=== PATIENT | female | born 1950 | race Caucasian/White ===

== ENCOUNTER 2017-02-14 17:37 | Observation (INO) | payer OTHER ==
--- NOTE | 2017-02-14 18:09 | ED PDOC ---
Arrival/HPI - General Chief Complaint: Dizziness/Lightheaded Time Seen by Provider: 02/14/17 18:02 Historian: Patient, [place] (who arrived with patient from work) - History of Present Illness Narrative History of Present Illness (Text): 02/14/17 18:03 A 66 year old female was brought into the emergency department by EMS complaining of dizziness that began 1 hour ago. History obtained through pharmacy ancillary who accompanied patient from work. Patient reports a headache, nausea and one episode of non-bilious non-bloody vomiting prior to arrival. Patient denies any fever, diarrhea, abdominal pain, chest pain, shortness of breath or any other complaints. HPI and ROS limited due to language barrier. PMD: None Time/Duration: 1 hour Symptom Course: Unchanged Quality: Other Context: Work Past Medical History - Provider Review Nursing Documentation Reviewed: Yes - Infectious Disease Hx of Infectious Diseases: None - Reproductive Menopause: Yes - Cardiac Hx Hypertension: Yes - Pulmonary Hx Respiratory Disorders: No - Psychiatric Hx Substance Use: No - Anesthesia Hx Anesthesia: No Family/Social History - Physician Review Nursing Documentation Reviewed: Yes Family/Social History: No Known Family HX Smoking Status: Unknown If Ever Smoked Hx Alcohol Use: No Hx Substance Use: No Allergies/Home Meds Allergies/Adverse Reactions: Allergies No Known Allergies Allergy (Verified 02/14/17 17:54) Home Medications: Home Meds Medication Instructions Recorded Confirmed Unobtainable 02/14/17 02/14/17 Review of Systems - Review of Systems Systems not reviewed;Unavailable: Language Barrier Physical Exam - Physical Exam Narrative Physical Exam (Text): Head: Atraumatic. Normocephalic. Eyes: PERRL. EOMI. Conjunctivae are not pale. ENT: Mucous membranes are moist and intact. Oropharynx is clear and symmetric. Neck: Supple. Full ROM. No JVD. No lymphadenopathy. Cardiovascular: Regular rate. Regular rhythm. No murmurs, rubs, or gallops. Distal pulses are 2+ and symmetric. Pulmonary/Chest: No evidence of respiratory distress. Clear to auscultation bilaterally. No wheezing, rales or rhonchi. Abdominal: Soft and non-distended. There is no tenderness. No rebound, guarding, or rigidity. No organomegaly. Good bowel sounds. Back: No CVA tenderness. Extremities: No edema. No cyanosis. No clubbing. Full range of motion in all extremities. No calf tenderness. Skin: Skin is warm and dry. No petechiae. No purpura. Neurological: Alert, awake, and oriented to person, place, time, and situation. Normal speech. Psychiatric: Good eye contact. Normal interaction, affect, and behavior. Vital Signs Reviewed: Yes Vital Signs Temp Pulse Resp BP Pulse Ox 02/14/17 20:48 98 F 68 20 103/80 99 02/14/17 19:14 98 F 71 20 142/99 H 100 02/14/17 17:45 97.6 F 60 20 144/96 H 100 Temperature: Afebrile Blood Pressure: Hypertensive Pulse: Regular Respiratory Rate: Normal Appearance: Positive for: Well-Appearing, Non-Toxic, Comfortable Pain Distress: None Mental Status: Positive for: Alert and Oriented X 3 Medical Decision Making ED Course and Treatment: 02/14/17 18:03 Impression: A 66 year old female with dizziness. Differential Diagnosis included but are not limited to: Vertigo vs. Gastroenteritis Plan: -- Head CT -- Chest xray -- EKG -- Labs -- Urinalysis -- Antivert and IV fluids -- Reassess and disposition Progress Notes: Patient reassessed with pharmacy ancillary phone, [place] [id number], [place] [id number] specifically audio pharmacy ancillary. Patient states to me that she works at [employer], does not currently have a PMD. States that she was feeling well this AM when she woke up, while at work she suddenly developed dizziness, sensation that she may fall, associated with nausea and several episodes of vomiting. Patient states that vomiting is preciptated by dizziness. Patient denies chest pain or shortness of breath. Denies visual symptoms. Denies neck pain. Denies trauma. Denies numbness or weakness. On exam, patient is severely symptomatic with any movements. No hypotension or tachycardia noted. No caroitd bruits. No focal weakness or slurred speech or facial droop noted. No trauma reported. CT ordered due to acute onset of symptoms: Report Date : 02/14/2017 18:48:31 PROCEDURE: CT HEAD WITHOUT CONTRAST. Dictator : FAVIOLA GARCIA MD IMPRESSION: No acute intracranial abnormality. Mild age-related global parenchymal volume loss. Report Date : 02/14/2017 18:54:11 Procedure: Chest xray Dictator : Ladonna Ralph MD IMPRESSION: No focal consolidation, significant pleural effusion, or definite pneumothorax identified. On re-exam, improved but persistent symptoms since initial arrival. Patient will be admitted for observation as well as social service consultation as she reports no family, no ride home, and lives in [place]. D/w Dr. Garcia, accepts admission to hospitalist. 02/14/17 22:29 - Lab Interpretations Lab Results: 02/14/17 18:18 02/14/17 18:18 Lab Results 02/14/17 18:18: WBC 8.3, RBC 4.27, Hgb 12.3, Hct 37.0, MCV 86.7, MCH 28.8, MCHC 33.2, RDW 14.0, Plt Count 242, MPV 10.2, Gran % 79.9 H, Lymph % (Auto) 15.3 L, [place] % (Auto) 4.1, Eos % (Auto) 0.6 L, Baso % (Auto) 0.1, Gran # 6.65 H, Lymph # 1.3, [place] # 0.3, Eos # 0.1, Baso # 0.01, PT 11.8, INR 1.09 H, APTT 22.4 L, Sodium 138, Potassium 3.8, Chloride 103, Carbon Dioxide 24, Anion Gap 15, BUN 20 , Creatinine 0.9, Est GFR ( Amer) > 60, Est GFR (Non-Af Amer) > 60, Random Glucose 167 H, Calcium 9.1, Total Bilirubin 0.4, AST 43 H, ALT 29, Alkaline Phosphatase 86, Lactate Dehydrogenase 518, Total Creatine Kinase 233 H , CK-MB (CK-2) 1.0, CK-MB (CK-2) % Cancelled, Troponin I < 0.01, Total Protein 7.7, Albumin 4.2, Globulin 3.5, Albumin/Globulin Ratio 1.2 - RAD Interpretation Radiology Orders: 02/14/17 18:03 HEAD W/O CONTRAST [CT] Stat CHEST ONE VIEW [RAD] Stat - EKG Interpretation EKG Interpretation (Text): 02/14/17 22:34 sinus bradycardia rate of 50 Interpreted by ED Physician: Yes Type: 12 lead EKG - Medication Orders Current Medication Orders: Sodium Chloride (Sodium Chloride 0.9%) 1,000 mls @ 100 mls/hr IV .Q10H VERITO Last Admin: 02/14/17 18:23 Dose: 100 MLS/HR eMAR Start Stop Document 02/14/17 18:23 BREEZY (Rec: 02/14/17 18:23 [id number] Intravenous Solution Start Date 02/14/17 Start Time 18:23 Discontinued Medications Meclizine HCl (Antivert) 25 mg PO ONCE ONE Stop: 02/14/17 18:05 Last Admin: 02/14/17 18:23 Dose: 25 MG Ondansetron HCl (Zofran Inj) 4 mg IVP ONCE ONE Stop: 02/14/17 19:40 Last Admin: 02/14/17 19:56 Dose: 4 MG IVP Administration Document 02/14/17 19:56 RJR (Rec: 02/14/17 19:56 RJR [id number]) Charges for Administration # of IVP Administrations 1 - Scribe Statement The provider has reviewed the documentation as recorded by the Scribyakov Hernandez Provider Scribe Attestation: All medical record entries made by the Scribe were at my direction and personally dictated by me. I have reviewed the chart and agree that the record accurately reflects my personal performance of the history, physical exam, medical decision making, and the department course for this patient. I have also personally directed, reviewed, and agree with the discharge instructions and disposition. Disposition/Present on Arrival - Present on Arrival Any Indicators Present on Arrival: No History of DVT/PE: No History of Uncontrolled Diabetes: No Urinary Catheter: No History of Decub. Ulcer: No History Surgical Site Infection Following: None - Disposition Have Diagnosis and Disposition been Completed?: Yes Diagnosis: Vertigo, Dizziness Disposition: HOSPITALIZED Disposition Time: 22:35 Patient Plan: Observation Patient Problems: Current Active Problems Problem Status Diagnosed Dizziness Acute Vertigo Acute Condition: FAIR
[2017-02-14] MEDS ORDERED: Sodium Chloride 0.9% 1,000 ML IV SCH (18:15)
[2017-02-14 18:26] LABS: ADD MANUAL DIFF? NO
[2017-02-14 18:29] LABS: BASO # 0.01 [, K/mm3] (0.0-2.0); BASO % 0.1 % (0.0-3.0); EOS # 0.1 (0.0-0.7); EOS % 0.6 % (1.5-5.0); GRAN # 6.65 (1.4-6.5); GRAN % 79.9 % (50.0-68.0); LYMPH # 1.3 (1.2-3.4); LYMPH % 15.3 % (22.0-35.0); MEAN CELL VOLUME 86.7 fL (80.0-105.0); MEAN CORPUSCULAR HEMOGLOBIN 28.8 pg (25.0-35.0); MEAN CORPUSCULAR HGB CONC 33.2 g/dl (31.0-37.0); MEAN PLATELET VOLUME 10.2 fl (7.0-11.0); MONO # 0.3 (0.1-0.6); MONO % 4.1 % (1.0-6.0); PLATELET COUNT 242 [, 10^3/uL] (120.0-450.0); WHITE BLOOD COUNT 8.3 [, 10^3/ul] (4.5-11.0)
--- NOTE | 2017-02-14 18:49 | CT ---
PROCEDURE: CT HEAD WITHOUT CONTRAST. HISTORY: Sudden onset of dizziness COMPARISON: None available. TECHNIQUE: Axial computed tomography images were obtained through the head/brain without intravenous contrast. Radiation dose: Total exam DLP = 774.23 mGy-cm. FINDINGS: HEMORRHAGE: No intracranial hemorrhage. BRAIN: [place]-white matter differentiation is preserved. There is no mass, mass effect or abnormal extra-axial fluid collection. There is normal density in the larger dural venous sinuses. VENTRICLES: There is mild age-related global parenchymal volume loss and proportionate enlargement of the ventricles and cortical sulci CALVARIUM: The skull base and calvarium are normal. PARANASAL SINUSES: Predominantly clear. MASTOID AIR CELLS: Predominantly clear. OTHER FINDINGS: None. IMPRESSION: No acute intracranial abnormality. Mild age-related global parenchymal volume loss.
[2017-02-14 18:54] LABS: ALB/GLOB RATIO 1.2 (1.1-1.8); ALKALINE PHOSPHATASE 86 U/L (38-133); ALT/SGPT 29 U/L (7-56); AST/SGOT 43 U/L (15-39); BILIRUBIN,TOTAL 0.4 mg/dL (0.2-1.3); BLOOD UREA NITROGEN 20 mg/dL (7-21); CALCIUM 9.1 mg/dL (8.4-10.5); CARBON DIOXIDE 24 mmol/L (21-33); CHLORIDE 103 mmol/L (98-107); GFR AFRICAN-AMERICAN > 60; GLUCOSE,RANDOM 167 mg/dL (70-110); POTASSIUM 3.8 mmol/L (3.6-5.0); SODIUM 138 mmol/L (132-148); TOTAL PROTEIN 7.7 g/dL (5.8-8.3)
--- NOTE | 2017-02-14 18:55 | RAD ---
HISTORY: dizziness COMPARISON: None available TECHNIQUE: Chest, one view. FINDINGS: Examination limited by habitus. LUNGS: No focal consolidation. Please note that chest x-ray has limited sensitivity for the detection of pulmonary masses. PLEURA: No significant pleural effusion identified. No definite pneumothorax . CARDIOVASCULAR: The cardiomediastinal silhouette appears within normal limits of size. OSSEOUS STRUCTURES: No acute osseous abnormality identified. VISUALIZED UPPER ABDOMEN: Unremarkable. OTHER FINDINGS: None. IMPRESSION: No focal consolidation, significant pleural effusion, or definite pneumothorax identified.
[2017-02-14 18:59] LABS: INR 1.09 (0.93-1.08); PARTIAL THROMBOPLASTIN TIME 22.4 Seconds (23.7-30.8)
[2017-02-14 19:09] LABS: TROPONIN I < 0.01 ng/mL
--- NOTE | 2017-02-14 22:22 | CP.PCM.HP ---
<Letty Lemons - Last Filed: 02/15/17 01:17> History of Present Illness - History of Present Illness History of Present Illness: PGY-[address] Tarango H&P Admission: Dizzines, N/V 66 year old female was brought into the emergency department by EMS complaining of dizziness that began 1 hour ago. 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 Patient reports suddenly feeling dizzy, sitting at work. Thereafter felt nausea and one episode of non-bilious non-bloody vomiting prior to arrival. In the ED, VSS: 98 F; H 71, 142/99, 100 RA. In 2 hours, BP drops to 103/80. CBC normal. BMP normal. AST slight elevated at 43. CK at 233. First cardiac enzyme negative Head CT showed: No acute intracranial abnormality. Mild age-related global parenchymal volume loss. CXR shows: No focal consolidation, significant pleural effusion, or definite pneumothorax identified. ROS - Patient denies any fever, diarrhea, abdominal pain, chest pain, shortness of breath or any other complaints. PMH HTN PSH Fibroid removal 40 years ago FH Pt states not sure SH Lives alone Never smoke, drink, drug All None Med 3 HTN meds but forgot what they are, forgot which pharmacy, forgot the name of PMD Present on Admission - Present on Admission Any Indicators Present on Admission: No Past Patient History - Infectious Disease Hx of Infectious Diseases: None - Past Social History Smoking Status: Unknown If Ever Smoked - CARDIAC Hx Hypertension: Yes - PULMONARY Hx Respiratory Disorders: No - PSYCHIATRIC Hx Substance Use: No - ANESTHESIA Hx Anesthesia: No Meds Allergies/Adverse Reactions: Allergies Allergy/AdvReac Type Severity Reaction Status Date / Time No Known Allergies Allergy Verified 02/14/17 17:54 Physical Exam - Constitutional Appears: No Acute Distress - Head Exam Head Exam: ATRAUMATIC, NORMOCEPHALIC - Eye Exam Eye Exam: EOMI, Normal appearance - ENT Exam ENT Exam: Mucous Membranes Moist - Neck Exam Neck exam: Negative for: Meningismus Additional comments: supple - Respiratory Exam Respiratory Exam: Clear to Auscultation Bilateral, NORMAL BREATHING PATTERN. absent: Rales, Rhonchi, Wheezes - Cardiovascular Exam Cardiovascular Exam: REGULAR RHYTHM, +S1, +S2, Systolic Murmur (1+) - GI/Abdominal Exam GI & Abdominal Exam: Normal Bowel Sounds, Soft. absent: Tenderness - Extremities Exam Extremities exam: Positive for: normal capillary refill, pedal pulses present. Negative for: calf tenderness, pedal edema - Back Exam Back exam: absent: CVA tenderness (L), CVA tenderness (R) - Neurological Exam Neurological exam: Alert, CN II-XII Intact, Oriented x3, Reflexes Normal Additional comments: Negative [place] - Psychiatric Exam Psychiatric exam: Normal Affect, Normal Mood - Skin Skin Exam: Dry, Warm Additional comments: a 1/4 inch x 1/4 inch brown mole, regular border on L medial breast Results - Vital Signs Recent Vital Signs: Last Vital Signs Temp 98 F 02/14/17 20:48 Pulse 68 02/14/17 20:48 Resp 20 02/14/17 20:48 BP 103/80 02/14/17 20:48 Pulse Ox 99 02/14/17 20:48 - Labs Result Diagrams: 02/14/17 18:18 02/14/17 18:18 Labs: Laboratory Results - last 24 hr 02/14/17 18:18 WBC 8.3 RBC 4.27 Hgb 12.3 Hct 37.0 MCV 86.7 MCH 28.8 MCHC 33.2 RDW 14.0 Plt Count 242 MPV 10.2 Gran % 79.9 H Lymph % (Auto) 15.3 L [place] % (Auto) 4.1 Eos % (Auto) 0.6 L Baso % (Auto) 0.1 Gran # 6.65 H Lymph # 1.3 [place] # 0.3 Eos # 0.1 Baso # 0.01 PT 11.8 INR 1.09 H APTT 22.4 L Sodium 138 Potassium 3.8 Chloride 103 Carbon Dioxide 24 Anion Gap 15 BUN 20 Creatinine 0.9 Est GFR ( Amer) > 60 Est GFR (Non-Af Amer) > 60 Random Glucose 167 H Calcium 9.1 Total Bilirubin 0.4 AST 43 H ALT 29 Alkaline Phosphatase 86 Lactate Dehydrogenase 518 Total Creatine Kinase 233 H CK-MB (CK-2) 1.0 CK-MB (CK-2) % Cancelled Troponin I < 0.01 Total Protein 7.7 Albumin 4.2 Globulin 3.5 Albumin/Globulin Ratio 1.2 Assessment & Plan - Assessment and Plan (Free Text) Plan: 66 year old female was brought into the emergency department by EMS complaining of dizziness that began 1 hour ago. History obtained through early childhood education coordinator #[id number]. Patient reports suddenly feeling dizzy, sitting at work. Thereafter felt nausea and one episode of non-bilious non-bloody vomiting prior to arrival. Pre-Syncope - Likely from orthostatic: DBP change > 10mmHg - R/o cardiac and neural cause - TSH - carotid artery u/s - echocardiogram - neural, cardio consult - physical therapy N/V - resolved - likely vagal response HTN - observed. HCTZ if needed. - check lipid panel Low risk GI stress ulcer DVT prophylaxis - lovenox S/R/D/w Dr. Tarango - Date & Time Date: 02/14/17 Time: 11:48 <Ebonie Tarango - Last Filed: 02/15/17 02:47> Results - Vital Signs Recent Vital Signs: Last Vital Signs Temp 98.4 F 02/15/17 00:38 Pulse 80 02/15/17 00:38 Resp 18 02/15/17 00:38 BP 138/92 H 02/15/17 00:38 Pulse Ox 99 02/15/17 00:38 - Labs Result Diagrams: 02/14/17 18:18 02/14/17 18:18 Attending/Attestation - Attestation I have personally seen and examined this patient.: Yes I have fully participated in the care of the patient.: Yes I have reviewed all pertinent clinical information: Yes Notes (Text): 02/15/17 02:46 Patient was seen when she was in bed # [address] in the ER with Dr.Katherine Lemons. Agree with history, physical examination,assessment and plan.
[2017-02-15 03:06] VITALS: RESP 20
[2017-02-15 07:00] LABS: ADD MANUAL DIFF? NO
[2017-02-15 07:13] LABS: BASO # 0.03 [, K/mm3] (0.0-2.0); BASO % 0.4 % (0.0-3.0); EOS % 0.4 % (1.5-5.0); GRAN % 69.2 % (50.0-68.0); HEMATOCRIT 34.5 % (36.0-48.0); LYMPH # 1.7 (1.2-3.4); LYMPH % 22.1 % (22.0-35.0); MEAN CELL VOLUME 85.6 fL (80.0-105.0); MEAN CORPUSCULAR HEMOGLOBIN 27.8 pg (25.0-35.0); MEAN CORPUSCULAR HGB CONC 32.5 g/dl (31.0-37.0); MEAN PLATELET VOLUME 9.9 fl (7.0-11.0); MONO # 0.6 (0.1-0.6); MONO % 7.9 % (1.0-6.0); PLATELET COUNT 240 [, 10^3/uL] (120.0-450.0); WHITE BLOOD COUNT 7.5 [, 10^3/ul] (4.5-11.0)
[2017-02-15 07:29] LABS: BLOOD UREA NITROGEN 13 mg/dL (7-21); CALCIUM 8.8 mg/dL (8.4-10.5); CARBON DIOXIDE 26 mmol/L (21-33); CHLORIDE 104 mmol/L (98-107); CHOLESTEROL 150 mg/dL (130-200); GFR AFRICAN-AMERICAN > 60; GLUCOSE,RANDOM 87 mg/dL (70-110); POTASSIUM 3.9 mmol/L (3.6-5.0); SODIUM 139 mmol/L (132-148)
[2017-02-15 07:44] LABS: TROPONIN I < 0.01 ng/mL
[2017-02-15 09:10] VITALS: BP 121/78; PULSE 65; TEMP 97.8; O2SAT 100
[2017-02-15] MEDS ORDERED: Enoxaparin 40 mg Syringe SC SCH (10:00)
--- NOTE | 2017-02-15 12:56 | CON ---
DATE: 02/15/2017 HISTORY OF PRESENT ILLNESS: The patient is a 66-year-old woman with transient dizziness consistent w ith vertigo. The patient received IV fluids and is completely resolved. No past medical history. No previous cardiac history. No chest pain, no shortness of breath. Negat brenda diabetes mellitus, negative hypertension. SOCIAL HISTORY: Denies smoking. REVIEW OF SYSTEMS: A 14-point review of systems reviewed in detail. No cardiac symptomatology is no elliot. PHYSICAL EXAMINATION: VITAL SIGNS: Blood pressure is 121/78, heart rate in the 60s. NECK: Negative JVD. LUNGS: Without rales. HEART: Reveals S1, S2. EXTREMITIES: Without edema. LABORATORIES: Troponins are negative x 2. BUN and creatinine are unremarkable. Hemoglobin is 11.2. IMPRESSION: 1. Transient vertigo. 2. Mild anemia. 3. No evidence for acute coronary syndrome. No evidence for a cardiac cause of her transient vertig o. Given these findings, no further cardiac workup is necessary at this time. We will sign off the case . The patient agrees to follow up with her primary care doctor. Evans Argueta MD cc: [phone] TT: 02/15/2017 12:55:42 Confirmation # [id number] Dictation # [id number] jn
--- NOTE | 2017-02-15 15:51 | CP.PCM.DIS ---
<Jaquan Pascal - Last Filed: 02/15/17 15:44> Provider - Provider Date of Admission: 02/14/17 22:36 Attending physician: Danette Reyes MD Primary care physician: NO PRIMARY CARE PROVIDER Time Spent in preparation of Discharge (in minutes): 31 Hospital Course - Lab Results Lab Results: Most Recent Lab Values WBC 7.5 10^3/ul (4.5-11.0) 02/15/17 06:30 RBC 4.03 10^6/uL (3.5-6.1) 02/15/17 06:30 Hgb 11.2 gm/dL (12.0-16.0) L 02/15/17 06:30 Hct 34.5 % (36.0-48.0) L 02/15/17 06:30 MCV 85.6 fL (80.0-105.0) 02/15/17 06:30 MCH 27.8 pg (25.0-35.0) 02/15/17 06:30 MCHC 32.5 g/dl (31.0-37.0) 02/15/17 06:30 RDW 14.0 % (11.5-14.5) 02/15/17 06:30 Plt Count 240 10^3/uL (120.0-450.0) 02/15/17 06:30 MPV 9.9 fl (7.0-11.0) 02/15/17 06:30 Gran % 69.2 % (50.0-68.0) H 02/15/17 06:30 Lymph % (Auto) 22.1 % (22.0-35.0) 02/15/17 06:30 [place] % (Auto) 7.9 % (1.0-6.0) H 02/15/17 06:30 Eos % (Auto) 0.4 % (1.5-5.0) L 02/15/17 06:30 Baso % (Auto) 0.4 % (0.0-3.0) 02/15/17 06:30 Gran # 5.20 (1.4-6.5) 02/15/17 06:30 Lymph # 1.7 (1.2-3.4) 02/15/17 06:30 [place] # 0.6 (0.1-0.6) 02/15/17 06:30 Eos # 0.0 (0.0-0.7) 02/15/17 06:30 Baso # 0.03 K/mm3 (0.0-2.0) 02/15/17 06:30 PT 11.8 Seconds (9.9-11.8) 02/14/17 18:18 INR 1.09 (0.93-1.08) H 02/14/17 18:18 APTT 22.4 Seconds (23.7-30.8) L 02/14/17 18:18 Sodium 139 mmol/L (132-148) 02/15/17 06:30 Potassium 3.9 mmol/L (3.6-5.0) 02/15/17 06:30 Chloride 104 mmol/L (98-107) 02/15/17 06:30 Carbon Dioxide 26 mmol/L (21-33) 02/15/17 06:30 Anion Gap 13 (10-20) 02/15/17 06:30 BUN 13 mg/dL (7-21) 02/15/17 06:30 Creatinine 0.8 mg/dL (0.5-1.4) 02/15/17 06:30 Est GFR ( Amer) > 60 02/15/17 06:30 Est GFR (Non-Af Amer) > 60 02/15/17 06:30 Random Glucose 87 mg/dL (70-110) 02/15/17 06:30 Calcium 8.8 mg/dL (8.4-10.5) 02/15/17 06:30 Total Bilirubin 0.4 mg/dL (0.2-1.3) 02/14/17 18:18 AST 43 U/L (15-39) H 02/14/17 18:18 ALT 29 U/L (7-56) 02/14/17 18:18 Alkaline Phosphatase 86 U/L (38-133) 02/14/17 18:18 Lactate Dehydrogenase 463 U/L (333-699) 02/15/17 06:30 Total Creatine Kinase 249 U/L (35-230) H 02/15/17 06:30 CK-MB (CK-2) 1.5 ng/mL (0.0-3.6) 03/24/17 06:30 CK-MB (CK-2) % Cancelled 02/14/17 18:18 Troponin I < 0.01 ng/mL 02/15/17 06:30 Total Protein 7.7 g/dL (5.8-8.3) 02/14/17 18:18 Albumin 4.2 g/dL (3.0-4.8) 02/14/17 18:18 Globulin 3.5 gm/dL 02/14/17 18:18 Albumin/Globulin Ratio 1.2 (1.1-1.8) 02/14/17 18:18 Triglycerides 35 mg/dL (35-160) 02/15/17 06:30 Cholesterol 150 mg/dL (130-200) 02/15/17 06:30 LDL Cholesterol Direct 73 mg/dL (0-129) 02/15/17 06:30 HDL Cholesterol 54 mg/dL (29-60) 02/15/17 06:30 TSH 3rd Generation 0.83 mIU/mL (0.46-4.68) 02/15/17 06:30 - Hospital Course Hospital Course: HPI: Pt is a 66 year old female with a past medical hx of HTN who presented to the emergency room via EMS with complaints of dizziness that began suddenly the day of admission while she was at work. Hospital Course: Pt had CXR done which was negative (please see full report). Troponins were negative x 2. Vital signs were all normal upon discharge; the pt did experience transient hypertension during stay. Head CT revaled no acute intracranial abnormalities (please see full report). Cardiology, Dr. Argueta, was consulted. EKG revealed sinus bradycardia. As per cardio, pt experienced transient vertigo. Pt reported that her symptoms had fully resolved. Pt adivsed to follow up with PMD. Discharge Exam - Head Exam Head Exam: ATRAUMATIC, NORMOCEPHALIC Discharge Plan - Discharge Medications Prescriptions: Meclizine [Meclizine*] 25 mg PO Q12 #6 tab Ondansetron HCl [Zofran] 4 mg PO Q6 #6 tablet - Follow Up Plan Condition: FAIR Disposition: HOME/ ROUTINE Instructions: Vertigo (DC) Additional Instructions: 1. Follow up with PMD in 3 days. Referrals: PCP,NO [Primary Care Provider] - <Danette Ryees - Last Filed: 02/16/17 16:47> Provider - Provider Date of Admission: 02/14/17 22:36 Attending physician: Danette Reyes MD Primary care physician: NO PRIMARY CARE PROVIDER Time Spent in preparation of Discharge (in minutes): 35 Hospital Course - Lab Results Lab Results: Most Recent Lab Values WBC 7.5 10^3/ul (4.5-11.0) 02/15/17 06:30 RBC 4.03 10^6/uL (3.5-6.1) 02/15/17 06:30 Hgb 11.2 gm/dL (12.0-16.0) L 02/15/17 06:30 Hct 34.5 % (36.0-48.0) L 02/15/17 06:30 MCV 85.6 fL (80.0-105.0) 02/15/17 06:30 MCH 27.8 pg (25.0-35.0) 02/15/17 06:30 MCHC 32.5 g/dl (31.0-37.0) 02/15/17 06:30 RDW 14.0 % (11.5-14.5) 02/15/17 06:30 Plt Count 240 10^3/uL (120.0-450.0) 02/15/17 06:30 MPV 9.9 fl (7.0-11.0) 02/15/17 06:30 Gran % 69.2 % (50.0-68.0) H 02/15/17 06:30 Lymph % (Auto) 22.1 % (22.0-35.0) 02/15/17 06:30 [place] % (Auto) 7.9 % (1.0-6.0) H 02/15/17 06:30 Eos % (Auto) 0.4 % (1.5-5.0) L 02/15/17 06:30 Baso % (Auto) 0.4 % (0.0-3.0) 02/15/17 06:30 Gran # 5.20 (1.4-6.5) 02/15/17 06:30 Lymph # 1.7 (1.2-3.4) 02/15/17 06:30 [place] # 0.6 (0.1-0.6) 02/15/17 06:30 Eos # 0.0 (0.0-0.7) 02/15/17 06:30 Baso # 0.03 K/mm3 (0.0-2.0) 02/15/17 06:30 PT 11.8 Seconds (9.9-11.8) 02/14/17 18:18 INR 1.09 (0.93-1.08) H 02/14/17 18:18 APTT 22.4 Seconds (23.7-30.8) L 02/14/17 18:18 Sodium 139 mmol/L (132-148) 02/15/17 06:30 Potassium 3.9 mmol/L (3.6-5.0) 02/15/17 06:30 Chloride 104 mmol/L (98-107) 02/15/17 06:30 Carbon Dioxide 26 mmol/L (21-33) 02/15/17 06:30 Anion Gap 13 (10-20) 02/15/17 06:30 BUN 13 mg/dL (7-21) 02/15/17 06:30 Creatinine 0.8 mg/dL (0.5-1.4) 02/15/17 06:30 Est GFR ( Amer) > 60 02/15/17 06:30 Est GFR (Non-Af Amer) > 60 02/15/17 06:30 Random Glucose 87 mg/dL (70-110) 02/15/17 06:30 Calcium 8.8 mg/dL (8.4-10.5) 02/15/17 06:30 Total Bilirubin 0.4 mg/dL (0.2-1.3) 02/14/17 18:18 AST 43 U/L (15-39) H 02/14/17 18:18 ALT 29 U/L (7-56) 02/14/17 18:18 Alkaline Phosphatase 86 U/L (38-133) 02/14/17 18:18 Lactate Dehydrogenase 463 U/L (333-699) 02/15/17 06:30 Total Creatine Kinase 249 U/L (35-230) H 02/15/17 06:30 CK-MB (CK-2) 1.5 ng/mL (0.0-3.6) 02/15/17 06:30 CK-MB (CK-2) % Cancelled 02/14/17 18:18 Troponin I < 0.01 ng/mL 02/15/17 06:30 Total Protein 7.7 g/dL (5.8-8.3) 02/14/17 18:18 Albumin 4.2 g/dL (3.0-4.8) 02/14/17 18:18 Globulin 3.5 gm/dL 02/14/17 18:18 Albumin/Globulin Ratio 1.2 (1.1-1.8) 02/14/17 18:18 Triglycerides 35 mg/dL (35-160) 02/15/17 06:30 Cholesterol 150 mg/dL (130-200) 02/15/17 06:30 LDL Cholesterol Direct 73 mg/dL (0-129) 02/15/17 06:30 HDL Cholesterol 54 mg/dL (29-60) 02/15/17 06:30 TSH 3rd Generation 0.83 mIU/mL (0.46-4.68) 02/15/17 06:30 - Hospital Course Hospital Course: attending note; Patient is a 66-year-old female admitted with dizziness. patient had an episode of transient vertigo. Dizziness resolved. CT head is negative. Episode of bradycardia; cardiac enzymes negative. Cardiology evaluation appreciated. Patient will be discharged home with close follow-up with PMD in [place]. Diagnosis; Vertigo Hypertension
--- NOTE | 2017-02-15 18:43 | CARD ---
APPROVED REPORT EKG Measurement Heart [id number] [place] [id number] <Conclusion> Sinus bradycardia Otherwise normal ECG
== END 2017-02-15 15:32 | disposition home or self-care (01) ==
LOC: ED 17:37 → ERH 22:36 → 5RNO 02-15 01:03
PROVIDERS: ADMIT Internal Medicine; ATTEND Internal Medicine
DX: R42 Dizziness and giddiness (principal); I10 Essential (primary) hypertension; R00.1 Bradycardia, unspecified
CPT/HCPCS: 36415; 70450; 71010; 80048; 80053; 80061; 82550; 82553; 83615; 84443; 84484; 85025; 85610; 85730; 93005; 96374; 99285; G0378; J1650; J2405; J7040